=== PATIENT | female | born 1980 | race Caucasian/White ===

== ENCOUNTER 2022-11-02 07:46 | Outpatient (REF) | payer MEDICAID, SELFPAY ==
--- NOTE | ~2022-11-02 | US_ITS ---
EXAMINATION: US ABDOMEN COMPLETE CLINICAL INFORMATION: Fatty liver. Elevated AST. COMPARISON: None available. TECHNIQUE: Real-time imaging of the abdominal viscera. FINDINGS: PANCREAS: Normal. ABDOMINAL AORTA: The proximal, mid, and distal segments are normal in caliber. INFERIOR VENA CAVA: Visualized portions are normal. LIVER: The liver is normal in size. The liver contour is normal. There is diffuse increased liver parenchymal echogenicity, consistent with infiltrative hepatocellular disease. A 1 cm indeterminate hypoechoic liver lesion in the left hepatic lobe. There is no intrahepatic biliary duct dilatation seen. GALLBLADDER: Normal. The gallbladder is physiologically distended without evidence of stones, sludge, polyps, wall thickening or pericholecystic fluid. COMMON BILE DUCT: Normal in caliber measuring 0.3 cm in diameter. RIGHT KIDNEY: Normal. No hydronephrosis. No renal calculi or focal parenchymal lesions. The kidney measures 11.0 cm in maximum dimension. LEFT KIDNEY: Normal. No hydronephrosis. No renal calculi or focal parenchymal lesions. The kidney measures 10.8 cm in maximum dimension. SPLEEN: Normal. The spleen measures 10.2 cm in maximum dimension. FREE FLUID: None. US/US abdomen complete IMPRESSION: 1. A 1 cm indeterminate hypoechoic liver lesion in the left hepatic lobe. Recommend further characterization with contrast-enhanced MR abdomen. 2. There is diffuse increased liver parenchymal echogenicity which can be seen in the setting of hepatic steatosis or underlying liver disease.
== END 2022-11-02 07:47 | disposition home or self-care (01) ==
LOC: HO.US 07:46
PROVIDERS: PCP Internal Medicine; Visit Provider Internal Medicine
DX: K76.0 Fatty (change of) liver, not elsewhere classified (principal)
CPT/HCPCS: 76700

== ENCOUNTER 2022-11-23 10:19 | Outpatient (REF) | payer MEDICAID, SELFPAY ==
--- NOTE | 2022-11-23 | PFT_ITS ---
INDICATION: Dyspnea. SPIROMETRY: FEV1 to FVC of 72% with an FEV1 of 2.49 L, which is 85% predicted and FVC of 3.41 L, which is 97% predicted. No significant response to bronchodilators noted. Maximum voluntary ventilation 50% predicted. LUNG VOLUMES: Total lung capacity 102% predicted with a residual volume of 126% predicted and an expiratory reserve volume of 38% predicted. DIFFUSION CAPACITY: DLCO is elevated at 135% predicted. FLOW VOLUME LOOP: This is a normal loop. The patient does have some plateauing of the inspiratory flows and also potentially some plateauing of the expiratory flows suggesting a potential upper airway obstruction. COMPARISON: None. INTERPRETATION: No definitive obstructive nor restrictive ventilatory defects identified although again an upper airway obstructive process cannot be ruled out based on the flow volume loop. No significant response to bronchodilators noted. Lung volumes appeared to be normal except for an elevated residual volume suggesting some degree of air trapping which might be due to underlying small airway disease. The patient also has a significantly elevated diffusion capacity. Not clear if there is any exposure to exogenous carbon monoxide. We would recommend additional imaging studies and a pulmonary consultation to follow up this abnormal PFTs. Clinical correlation warranted. Javy Kaufman MD MR/MODL / [id number]
== END 2022-11-23 10:20 | disposition home or self-care (01) ==
LOC: HO.RESP 10:19
PROVIDERS: PCP Internal Medicine; Visit Provider Internal Medicine
DX: R06.02 Shortness of breath (principal)
CPT/HCPCS: 94010; 94727; 94729

== ENCOUNTER → 2022-11-23 10:30 | Outpatient (BNV) | payer MEDICAID, SELFPAY | PROVIDERS: PCP Internal Medicine; Visit Provider Hospitalist | DX: R06.02 Shortness of breath (principal) | CPT/HCPCS: 94060; 94727; 94729 ==

== ENCOUNTER 2022-12-15 16:31 | Outpatient (REF) | payer MEDICAID, SELFPAY ==
--- NOTE | ~2022-12-15 | MR_ITS ---
EXAMINATION: MR ABDOMEN WITHOUT AND WITH CONTRAST CLINICAL INFORMATION: Liver lesion COMPARISON: Abdominal ultrasound 11/02/2022 TECHNIQUE: MRI of the abdomen before and after the IV administration of 6.5 mL of Gadavist was obtained using routine sequences. FINDINGS: LUNG BASES: Unremarkable. ABDOMINAL AND PELVIC WALL: Unremarkable. LIVER AND BILIARY TREE: Loss of signal on opposed phase imaging compatible with hepatic steatosis. No suspicious liver lesion or worrisome correlate to the suspected sonographic finding. GALLBLADDER: Unremarkable. PANCREAS: Unremarkable. SPLEEN: Incidentally noted accessory splenule. ADRENAL GLANDS: Unremarkable. KIDNEYS AND URETERS: Unremarkable. GASTROINTESTINAL TRACT: Unremarkable. VASCULAR: Unremarkable. LYMPH NODES/PERITONEUM: No lymphadenopathy. FREE FLUID: Trace simple pelvic free fluid within physiologic limits of volume. OSSEOUS STRUCTURES: Unremarkable. PARTIALLY IMAGED PELVIS: Question of a partially septate versus arcuate morphology of the uterus, suboptimally evaluated on this MR abdomen. MR/MR abdomen wo/w con IMPRESSION: 1. No suspicious liver lesion or worrisome correlate to the suspected sonographic finding. 2. Hepatic steatosis. 3. Question of a partially septate versus arcuate morphology of the uterus, suboptimally evaluated on this MR abdomen. This could be further evaluated with dedicated pelvic ultrasound.
== END 2022-12-15 16:32 | disposition home or self-care (01) ==
LOC: HO.MRI 16:31
PROVIDERS: PCP Internal Medicine; Visit Provider Internal Medicine
DX: K76.89 Other specified diseases of liver (principal)
CPT/HCPCS: 74183; A9585

== ENCOUNTER 2023-02-10 13:23 | Outpatient (REF) | payer MEDICAID, SELFPAY ==
--- NOTE | ~2023-02-10 | XR_ITS ---
EXAMINATION: XR CHEST CLINICAL INFORMATION: Dyspnea COMPARISON: None available. TECHNIQUE: 2 views of the chest were obtained. FINDINGS: No significant abnormality is noted involving the heart, lungs, mediastinum, bony thorax or soft tissues. XR/XR chest 2V IMPRESSION: Unremarkable examination.
[2023-02-10 14:29] LABS: MANUAL DIFF FLAG NO
[2023-02-10 15:09] LABS: Basophils Percent Auto 0.4 % (0-2); Eosinophils Absolute Auto 0.4 X10*3/uL (0.0-0.4); Eosinophils Percent Auto 4.4 % (0-4); Hematocrit 39.7 % (37.0-47.0); Imm Gran Abs Auto 0.02 X10*3/uL (0.00-0.03); Imm Gran Pct Auto 0.2 % (0.0-0.4); Lymphocytes Absolute Auto 2.5 X10*3/uL (1.2-4.9); Lymphocytes Percent Auto 29.4 % (20-40); Mean Corpuscular HGB Conc 32.7 g/dl (31.0-35.0); Mean Corpuscular Hemoglobin 29.9 pg (27.0-33.0); Mean Corpuscular Volume 91.3 fL (80.0-98.0); Mean Platelet Volume 9.4 fL (9.4-12.3); Monocytes Absolute Auto 0.5 X10*3/uL (0.1-1.2); Monocytes Percent Auto 6.4 % (2-11); Neutrophils Percent Auto 59.2 % (45-73); Platelet Count 330 X10*3/uL (160-400); Red Blood Count 4.35 X10*6/uL (4.20-5.50); Red Cell Distribution Width 12.8 % (11.0-16.0); White Blood Count 8.5 X10*3/uL (4.8-10.8)
[2023-02-10 15:53] LABS: Erythrocyte Sedimentation Rate 11 MM/HR (0-20)
[2023-02-14 20:54] LABS: Immunoglobulin E 51 kU/L (<OR=114)
== END 2023-02-10 13:24 | disposition home or self-care (01) ==
LOC: HO.LAB 13:23
PROVIDERS: PCP Internal Medicine; Visit Provider Hospitalist
DX: R06.00 Dyspnea, unspecified (principal); J30.9 Allergic rhinitis, unspecified; R21 Rash and other nonspecific skin eruption
CPT/HCPCS: 36415; 71046; 82785; 85025; 85652; 86003; 99212

== ENCOUNTER 2023-02-10 13:23 | Outpatient (AMB) | payer MEDICAID, SELFPAY ==
--- NOTE | 2023-02-10 13:28 | A.OFFVIS_ITS ---
Intake Vital Signs 02/10/23 13:32 Height 5 ft Weight 142 lb 3.17 oz BMI 27.8 BP 100/60 Blood Pressure Location Lt brachial Position Sitting Pulse 61 Pulse Source Pulse Oximeter Pulse Oximetry (%) 100 Oxygen Delivery Method Room Air Intake Visit Reasons: abnormal pft Wholesaler Required: No Allergies No Known Allergies Allergy (Verified 02/10/23 13:35) HPI HPI Comments History of Present Illness Details The patient is here for pulmonary evaluation. The patient is a 42 year woman who apparently was in her usual state health the last few months which she started noticing worsening shortness of breath. She is had episodes where she is exposed to either a fumes or an irritant or an allergen and 11 send she has a hard time breathing. She has 1 such episode while at outside family event where she was exposed to smoke and lowest setting could not breathe. Due to her ongoing symptoms the patient was referred for additional studies such as a pulmonary function study. The patient did undergo it and it was abnormal for the fact that her flow volume loop appeared to have plateauing of the inspiratory expiratory flows. This would suggest an upper airway obstruction. Therefore the patient was referred over. She states that she still has episodes of shortness of breath depending on the triggers. She does not use any inhalers. Denies any productive cough. She also gets hives at times and also rashes. The patient also has issues with underlying allergies with teary eyes and itchy nose. Denies any significant eczema. On my examination I did not appreciate any stridor. Her speech is good and does not appear to have any evidence of any upper airway obstruction at this time. She does state that before the pulmonary function study she had just had COVID and she did feel some fullness in that area. Indeed could have been swelling postviral and now has resolved. Still she likely has a component of reactive airways disease and likely some degree of allergic bronchospastic disease. Therefore, provide her with a peak flow and a rescue inhaler. The patient will also undergo allergy testing at this time will follow-up in 2-3 months or sooner if the patient develops any worsening symptoms. [facility] Medical History (Updated 02/10/23 @ 21:20 by Javy Kaufman MD) Dyspnea Chronic allergic rhinitis Rash Social History (Updated 02/10/23 @ 13:35 by MADELINE Rothman) Patient Tobacco Use Status: Never used Tobacco Review of Systems Const Denies fever(s) Eyes Reports itchy eyes ENT Denies hoarseness, Denies lip swelling, Reports nasal congestion and Reports nasal discharge Card Denies chest pain and Reports dyspnea Resp Reports cough and Reports dyspnea GI Reports no additional complaints Musc Reports no additional complaints Skin/Breast Reports rash Endo Denies flushing Víctor/Lymph Denies easy bruising and Denies lymphadenopathy Aller/Immun Reports itchy eyes and Denies lip swelling Physical Exam Vital Signs: Last Vital Signs Pulse 61 02/10/23 13:32 BP 100/60 02/10/23 13:32 Pulse Ox 100 02/10/23 13:32 Oxygen Delivery Method Room Air 02/10/23 13:32 BMI result Body Mass Index 27.8 Const General: comfortable HEENT Head: Yes normocephalic Eyes General: appearance normal, both eyes and all related structures Neck Neck: Yes supple Chest Chest palpation & inspection: normal inspection of the chest Resp Effort & Inspection: normal respiratory effort and no stridor Auscultation: clear to auscultation bilaterally Cardio Rate: regular rate Rhythm: regular rhythm Heart sounds: S1 normal heart sound present and S2 normal heart sound present GI Palpation (GI): Soft to palpation Skin General skin exam: no rashes or lesions noted Extrem General: Yes no clubbing, cyanosis or edema Assessment & Plan Assessment & Plan (1) Dyspnea: Comment: Likely reactive airway disease Code(s): R06.00 - Dyspnea, unspecified Qualifiers: Dyspnea type: shortness of breath Qualified Code(s): R06.02 - Shortness of breath (2) Chronic allergic rhinitis: Code(s): J30.9 - Allergic rhinitis, unspecified (3) Rash: Code(s): R21 - Rash and other nonspecific skin eruption Plan CARLOS as needed Peak flow Bloodwork/ Allergy testing CXR F/U 2-3 months Orders: Orders Rast Allergen Today J30.9 - Allergic rhinitis, unspecified, R06.00 - Dyspnea, unspecified, R21 - Rash and other nonspecific skin eruption Complete Blood Count Auto Diff Today J30.9 - Allergic rhinitis, unspecified, R06.00 - Dyspnea, unspecified, R21 - Rash and other nonspecific skin eruption Erythrocyte Sedimentation Rate Today J30.9 - Allergic rhinitis, unspecified, R06.00 - Dyspnea, unspecified, R21 - Rash and other nonspecific skin eruption Immunoglobulin E Today J30.9 - Allergic rhinitis, unspecified, R06.00 - Dyspnea, unspecified, R21 - Rash and other nonspecific skin eruption XR chest 2V Today R06.00 - Dyspnea, unspecified Medications: New albuterol sulfate 90 mcg/actuation 2 inhalations inhalation Q6H 30 days PRN 18 grams 12RF shortness of breath or wheezing J44.9 - Chronic obstructive pulmonary disease, unspecified Coding Level of Care Code New Pt Level 4 (45725) Diagnoses Shortness of breath R06.02 Dyspnea type: shortness of breath Chronic allergic rhinitis J30.9 Rash R21 Time Spent (min) 37
[2023-02-10 13:32] VITALS: BP 100/60; PULSE 61; O2SAT 100; BMI 27.8
== END 2023-02-10 14:10 | disposition home or self-care (01) ==
PROVIDERS: PCP Internal Medicine; Visit Provider Hospitalist
DX: R06.02 Shortness of breath (principal); J30.9 Allergic rhinitis, unspecified; R21 Rash and other nonspecific skin eruption
CPT/HCPCS: 99214

== ENCOUNTER 2023-03-10 11:40 | Outpatient (REF) | payer OTHER, SELFPAY ==
[2023-03-10 13:26] LABS: Rheumatoid Factor < 13.0 IU/mL (<15.0)
[2023-03-11 15:04] LABS: Cyclic Citrullinated Peptide <16 UNITS
[2023-03-15 15:14] LABS: ANA Pattern 2 Nuclear, Homogeneous; Anti Nuclear Antibody Pattern Nuclear, Speckled; Anti Nuclear Antibody Screen POSITIVE (NEGATIVE)
== END 2023-03-10 11:41 | disposition home or self-care (01) ==
LOC: HO.HHCL 11:40
PROVIDERS: Visit Provider Internal Medicine
DX: R53.83 Other fatigue (principal); R52 Pain, unspecified
CPT/HCPCS: 36415; 86038; 86039; 86200; 86431

== ENCOUNTER 2023-05-13 13:48 | Outpatient (AMB) | payer SELFPAY ==
[2023-05-13 14:08] VITALS: PULSE 65; O2SAT 98; BMI 27.5
--- NOTE | 2023-05-13 14:08 | A.OFFVIS_ITS ---
Intake Vital Signs 05/13/23 14:08 Height 5 ft Weight 141 lb BMI 27.5 Pulse 65 Pulse Source Pulse Oximeter Pulse Oximetry (%) 98 Oxygen Delivery Method Room Air Intake Visit Reasons: Abnormal PFT Direct Sales Consultant Required: No Allergies No Known Allergies Allergy (Verified 05/13/23 14:09) HPI HPI Comments History of Present Illness Details The patient is a 43 year woman who apparently was in her usual state health the last few months which she started noticing worsening shortness of breath. She is had episodes where she is exposed to either a fumes or an irritant or an allergen and 11 send she has a hard time breathing. She has 1 such episode while at outside family event where she was exposed to smoke and lowest setting could not breathe. Due to her ongoing symptoms the patient was referred for additional studies such as a pulmonary function study. The patient did undergo it and it was abnormal for the fact that her flow volume loop appeared to have plateauing of the inspiratory expiratory flows. This would suggest an upper airway obstruction. Therefore the patient was referred over. She states that she still has episodes of shortness of breath depending on the triggers. She does not use any inhalers. Denies any productive cough. She also gets hives at times and also rashes. The patient also has issues with underlying allergies with teary eyes and itchy nose. Denies any significant eczema. On my examination I did not appreciate any stridor. Her speech is good and does not appear to have any evidence of any upper airway obstruction at this time. She does state that before the pulmonary function study she had just had COVID and she did feel some fullness in that area. Indeed could have been swelling postviral and now has resolved. Still she likely has a component of reactive airways disease and likely some degree of allergic bronchospastic disease. Therefore, provide her with a peak flow and a rescue inhaler. The patient will also undergo allergy testing at this time will follow-up in 2-3 months or sooner if the patient develops any worsening symptoms. 05/13/2023 the patient is here for a pul monary follow-up visit. Overall she is doing about the same. Still having episodes of shortness of breath and chest tightness. Moderate severity. Typically early in the morning. Then after using her inhalers symptoms improved. She did start recently allergy medication [id number] because of itchy eyes and postnasal drip. Since we partially helping. We did review her allergy studies. She has severe allergies to dust mites. That is the major allergen. Unfortunately she does have carpet in her bedroom and also has regular budding. Explained to her the that environment is likely resulting in her allergy symptoms. She is going to be moving to a different apartment soon and therefore she understands interstitial look for something without any carpals rods. She also use hypoallergenic covers for the bedding. In the meantime will start her on Singulair. She will continue with rescue inhaler. At this point the patient does not need any inhaled steroids although if she does continue to be symptomatic then will go ahead and start her on Flovent. The patient can continue her [id number] allergy medication as well. The patient also was having significant joint discomfort. She has mainly small joint involvement. Moderate severity. A little stiffness. Her JAIMEE studies were indeed elevated. She may have a component of connective tissue disease that needs to be further addressed. Will make a referral to Rheumatology at this time. [facility] Medical History (Updated 05/13/23 @ 14:29 by Javy Kaufman MD) Dyspnea Chronic allergic rhinitis Rash Social History (Updated 02/10/23 @ 13:35 by Janis Contreras Benedict) Patient Tobacco Use Status: Never used Tobacco Review of Systems Const Denies fever(s) Eyes Reports itchy eyes ENT Denies hoarseness, Denies lip swelling, Reports nasal congestion and Reports nasal discharge Card Denies chest pain and Reports dyspnea Resp Reports cough and Reports dyspnea GI Reports no additional complaints Musc Reports no additional complaints Skin/Breast Reports rash Endo Denies flushing Víctor/Lymph Denies easy bruising and Denies lymphadenopathy Aller/Immun Reports itchy eyes and Denies lip swelling Physical Exam Vital Signs: Last Vital Signs Pulse 65 05/13/23 14:08 Pulse Ox 98 05/13/23 14:08 Oxygen Delivery Method Room Air 05/13/23 14:08 BMI result Body Mass Index 27.5 Const General: comfortable HEENT Head: Yes normocephalic Eyes General: appearance normal, both eyes and all related structures Neck Neck: Yes supple Chest Chest palpation & inspection: normal inspection of the chest Resp Effort & Inspection: normal respiratory effort and no stridor Auscultation: clear to auscultation bilaterally Cardio Rate: regular rate Rhythm: regular rhythm Heart sounds: S1 normal heart sound present and S2 normal heart sound present GI Palpation (GI): Soft to palpation Skin General skin exam: no rashes or lesions noted Extrem General: Yes no clubbing, cyanosis or edema Assessment & Plan Assessment & Plan (1) Dyspnea: Comment: Likely reactive airway disease Code(s): R06.00 - Dyspnea, unspecified Qualifiers: Dyspnea type: shortness of breath Qualified Code(s): R06.02 - Shortness of breath (2) Chronic allergic rhinitis: Code(s): J30.9 - Allergic rhinitis, unspecified (3) Rash: Code(s): R21 - Rash and other nonspecific skin eruption (4) Arthritis: Code(s): M19.90 - Unspecified osteoarthritis, unspecified site (5) JAIMEE positive: Code(s): R76.8 - Other specified abnormal immunological findings in serum Plan CARLOS as needed consider ICS inhaler if worsens start Singulair Avoidance rugs/carpet/bedding contiune anti histamines as needed Rheumatology referral F/U 12 months Orders: Referrals Rheumatology Referral M19.90 - Unspecified osteoarthritis, unspecified site, R76.8 - Other specified abnormal immunological findings in serum Medications: New montelukast (Singulair) 10 mg PO BEDTIME 30 days 30 tabs 11RF J45.909 - Unspecified asthma, uncomplicated Coding Level of Care Code Est Pt Level 4 (91482) Diagnoses Shortness of breath R06.02 Dyspnea type: shortness of breath Chronic allergic rhinitis J30.9 Rash R21 Arthritis M19.90 JAIMEE positive R76.8 Time Spent (min) 17
== END 2023-05-13 14:32 | disposition home or self-care (01) ==
PROVIDERS: PCP Internal Medicine; Referring Provider Internal Medicine; Visit Provider Hospitalist
DX: R06.02 Shortness of breath (principal); J30.9 Allergic rhinitis, unspecified; R21 Rash and other nonspecific skin eruption; M19.90 Unspecified osteoarthritis, unspecified site; R76.8 Other specified abnormal immunological findings in serum
CPT/HCPCS: 99214

== ENCOUNTER → 2023-05-13 13:48 | Outpatient (BNVA) | payer OTHER, SELFPAY | PROVIDERS: PCP Internal Medicine; Visit Provider Hospitalist | DX: R06.02 Shortness of breath (principal); J30.9 Allergic rhinitis, unspecified; R21 Rash and other nonspecific skin eruption; M19.90 Unspecified osteoarthritis, unspecified site; R76.8 Other specified abnormal immunological findings in serum | CPT/HCPCS: 99212 ==

== ENCOUNTER 2023-11-08 15:12 | Outpatient (REF) | payer MEDICAID, OTHER, SELFPAY ==
--- NOTE | ~2023-11-08 | XR_ITS ---
EXAMINATION: XR LUMBOSACRAL SPINE WITH OBLIQUES CLINICAL INFORMATION: Chronic bilateral low back pain with sciatica. Patient states no accident or injury, pain for one year when sitting too long. COMPARISON: None available. TECHNIQUE: 6 views of the lumbar spine. FINDINGS: Mild dextroscoliosis of the lumbar spine. Degenerative changes in the bilateral sacroiliac joints. Straightening of the normal lumbar lordosis. Facet arthritis in the lower lumbar spine. Multilevel lumbar spondylosis with mild loss of disc space height at L5-S1. XR/XR lumbar spine 4V min IMPRESSION: Multilevel lumbar spondylosis with mild loss of disc space height at L5-S1.
[2023-11-08 16:18] LABS: MANUAL DIFF FLAG NO
[2023-11-08 16:19] LABS: Basophils Percent Auto 0.5 % (0-2); Eosinophils Absolute Auto 0.3 X10*3/uL (0.0-0.4); Eosinophils Percent Auto 3.7 % (0-4); Hematocrit 40.1 % (37.0-47.0); Hemoglobin 13.6 g/dl (12.0-16.0); Imm Gran Abs Auto 0.02 X10*3/uL (0.00-0.03); Imm Gran Pct Auto 0.2 % (0.0-0.4); Lymphocytes Absolute Auto 2.3 X10*3/uL (1.2-4.9); Lymphocytes Percent Auto 27.9 % (20-40); Mean Corpuscular HGB Conc 33.9 g/dl (31.0-35.0); Mean Corpuscular Hemoglobin 30.4 pg (27.0-33.0); Mean Corpuscular Volume 89.5 fL (80.0-98.0); Mean Platelet Volume 9.3 fL (9.4-12.3); Monocytes Absolute Auto 0.5 X10*3/uL (0.1-1.2); Monocytes Percent Auto 6.1 % (2-11); Neutrophils Percent Auto 61.6 % (45-73); Platelet Count 330 X10*3/uL (160-400); Red Blood Count 4.48 X10*6/uL (4.20-5.50); Red Cell Distribution Width 13.2 % (11.0-16.0); White Blood Count 8.1 X10*3/uL (4.8-10.8)
[2023-11-08 16:47] LABS: Estimated Average Glucose 111 mg/dL; Hemoglobin A1c % 5.5 % (<6.0)
[2023-11-08 16:48] LABS: Alanine Aminotransferase 35 U/L (0-31); Albumin Level 4.3 g/dL (3.5-5.0); Alkaline Phosphatase 70 U/L (39-117); Anion Gap 12 (12-20); Aspartate Amino Transferase 20 U/L (5-31); Bilirubin Total 0.3 mg/dL (0.0-1.0); Blood Urea Nitrogen 10 mg/dL (9-16); Calcium 9.2 mg/dL (8.4-10.2); Carbon Dioxide 27 mmol/L (22-29); Chloride 104 mmol/L (96-108); Cholesterol 172 mg/dL (<200); Estimated Glomerular Filt Rate > 60; Glucose Random 101 mg/dL (60-115); HDL Cholesterol 46 mg/dL (>40); LDL Cholesterol Calculated 100 mg/dL (<100); Potassium 3.6 mmol/L (3.3-5.1); Sodium 139 mmol/L (135-145); Total Protein 7.7 g/dL (6.5-8.0); Triglycerides 133 mg/dL (<150)
[2023-11-08 17:20] LABS: Reflex LDLD? No
[2023-11-09 08:13] LABS: HIV AB/AG Nonreactive (Nonreactive); HIV Num 1 0.06 S/CO (0.00-0.99)
[2023-11-09 15:28] LABS: HCV Log PCR <1.18 NOT DETECTED Log IU/mL (NOT DETECTED); HepC Viral Load <15 NOT DETECTED IU/mL (NOT DETECTED)
== END 2023-11-08 15:13 | disposition home or self-care (01) ==
LOC: HO.HHCL 15:12
PROVIDERS: Visit Provider Internal Medicine
DX: Z00.00 Encounter for general adult medical examination without abnormal findings (principal); M54.42 Lumbago with sciatica, left side; M54.41 Lumbago with sciatica, right side; G89.29 Other chronic pain
CPT/HCPCS: 36415; 72110; 80053; 80061; 83036; 85025; 87389; 87522

== ENCOUNTER 2023-12-27 13:16 | Outpatient (REF) | payer MEDICAID, OTHER, SELFPAY ==
[2023-12-29 14:48] LABS: HPV mRNA E6/E7 Not Detected (Not Detected)
== END 2023-12-27 13:17 | disposition home or self-care (01) ==
LOC: HO.HHCLNP 13:16
PROVIDERS: Visit Provider Internal Medicine
DX: Z12.4 Encounter for screening for malignant neoplasm of cervix (principal)
CPT/HCPCS: 36415; 87624; 88175

== ENCOUNTER 2025-03-30 10:16 | Outpatient (REF) | payer MEDICAID, OTHER, SELFPAY ==
--- NOTE | ~2025-03-30 | MM_ITS ---
EXAMINATION: MM SCREENING DIGITAL BREAST TOMOSYNTHESIS, BILATERAL CLINICAL INFORMATION: Screening. Asymptomatic. COMPARISON: None. This is a baseline study. TECHNIQUE: Digital breast tomosynthesis is performed in mediolateral oblique and craniocaudal views along with computer-aided detection (CAD). Synthesized 2D images are generated from the tomosynthesis. FINDINGS: BREAST COMPOSITION: The breasts are heterogeneously dense, which may obscure small masses. BILATERAL BREASTS: No significant masses, suspicious calcifications or other abnormalities are seen in either breast. MM/MM tomosynthesis screening BI IMPRESSION: BILATERAL BREASTS: Negative, no mammographic evidence of malignancy. Normal interval follow-up is recommended in 12 months. ASSESSMENT: BI-RADS: Category 1: Negative RECOMMENDATION: Routine annual mammography screening. FOLLOW-UP: 1 year F/U This examination should not preclude the clinical evaluation of a suspicious palpable abnormality. This patient's information was entered into a reminder system with a target due date for their next mammogram. Electronically signed by: Hector Kam MD 04/01/2025 07:08 PM JANE
--- OUTSIDE RECORDS SUMMARY | 2025-03-30 10:25 | XMS_ITS | Encounter Summary ---
Author Organization [employer] Address [address] [place] [address] [place] [address] Care Team Providers Care Behavioral Therapy Coordinator Name Role Phone Agata Clark MD Primary Care Provide r Encounter Details Date Type Department Care Team (Latest Contact Info) Description 12/25/2018 Abstract [facility] CONVERSIONS Dental, Provider, DDS Social History Tobacco Use Types Packs/Day Years Used Date Smoking Tobacco: Never Assessed Comments Unknown Sex and Gender Information Value Date Recorded Sex Assigned at Female 03/15/2022 10:33 AM EDT Legal Sex Female 10:33 AM EDT Gender Identity Female 03/15/2022 10:33 AM EDT Sexual Orientation Choose not to disclose 2021 10:33 AM EDT documented as of this encounter Plan of Treatment Upcoming Encounters Date Type Department Care Team (Late st Contact Info) Description 04/03/2025 10:00 AM EST Office Visit [facility] ADULT [facility]ENT[facility] [address] [place] [address] Forest Fitch DDS [address] [place] [address] 08/05/2025 9:30 AM EDT Office Visit [facility] [address] [place] [address] Jeannette Weaver [address] [place] [address] documented as of this encounter Visit Diagnoses Not on filedocumented in this encounter Care Teams Behavioral Therapy Coordinator Relationship Specialty Start Date End Date Agata Clark MD [address] [place] [address] PCP - General Family Medicine 09/15/18 documented as of this encounter
--- OUTSIDE RECORDS SUMMARY | 2025-03-30 10:25 | XMS_ITS | Encounter Summary ---
Author Organization [employer] [facility] Address [address] [place] [address] Care Team Providers Care Breastfeeding Educator Name Role Phone Agata Clark MD Primary Care Provide r Encounter Details Date Type Department Care Team (Latest Contact Info) Description 08/27/2020 Abstract [facility] CONVERSIONS Dental, Provider, DDS Social History Tobacco [...] Description 04/03/2025 10:00 AM EST Office Visit [facility] ADULT DENTAL [address] [place] [address] Forest Fitch DDS [address] [place] [address] 08/05/2025 9:30 AM EDT Office Visit [facility] ADULT DENTAL [address] [place] [address] Jeannette Weaver [address] [place] [address] documented as of this encounter Visit Diagnoses Not on filedocumented in this encounter Care Teams Breastfeeding Educator Relationship Specialty Start Date End Date Agata Clark MD [address] [place] [address] PCP - General Family Medicine 09/15/18 documented as of this encounter
--- OUTSIDE RECORDS SUMMARY | 2025-03-30 10:25 | XMS_ITS | Encounter Summary ---
Author Organization [facility] Address [address] [place] [id number] Care Team Providers Care Director Of Channel Marketing Name Role Phone Agata Clark MD Primary Care Provide r Encounter Details Date Type Department Care Team (Latest Contact Info) Description 01/15/2022 Abstract [facility] CONVERSIONS Dental, Provider, DDS Social History [...] Description 04/03/2025 10:00 AM EST Office Visit [facility] ADULT DENTAL [address] [place] [address] Forest Fitch DDS [address] [place] [address] 08/05/2025 9:30 AM EDT Office Visit [facility] ADULT DENTAL [address] [place] [address] Jeannette Weaver [address] [place] [address] documented as of this encounter Visit Diagnoses Not on filedocumented in this encounter Care Teams Director Of Channel Marketing Relationship Specialty Start Date End Date Agata Clark MD [address] [place] [address] PCP - General Family Medicine 09/15/18 documented as of this encounter
--- OUTSIDE RECORDS SUMMARY | 2025-03-30 10:26 | XMS_ITS | Clinical Summary ---
Author Organization [facility] Address [address] [facility] [address] [place] [id number] Phone Care Team Providers Care Welfare Case Worker Name Role Phone Agata Street MD Primary Care Provider Allergies No known active allergies Medications No known medications Active Problems Problem Noted Date Diagnosed Date Molluscum contagiosum 01/11/2020 Overview (01/11/2020): Suspected moluscum of the mons Assessment & Plan (01/11/2020 1:16 PM EDT): Reviewed months for improvement, advised avoid shaving, rubbing, or scratching as this can spread the infection Return in 3-4 months for exam if not resolved; can consider removal/destruction Resolved Problems Problem Noted Date Diagnosed Date Resolved Date Normal intrauterine , antepartum 11/30/2019 01/04/2020 Breech presentation 11/30/2019 01/04/20 20 Mother positive for group B Streptococcus colonization 11/12/2019 01/04/2020 Urinary tract infection in m other during first trimester of 05/16/2019 01/04/2020 Overview (07/05/2019): Treated 05/17/18. Plan GABY at next visit Had urine culture in ED 06/11. Results contaminated. Not having any further s/s Assessment & Plan (06/12/2019 9:58 AM EST): Had urine culture in ED yesterday. Results pending. Advanced maternal age in multigravida 04/11/2019 01/04/2020 Overview (11/12/2019): CNM Dating criteria - LMP confirmed with 1st tri u/s Rh O+ GC/Chlam Neg/Neg Tdap 10/24/19 Flu * Hgb 12.1 GTT 1 hr elevated - 3 hr normal GBS pos PPBC * screening - neg cfDNA o Risks of aneuploidy discussed w patient. o Offered - Offer cell free DNA - Level 2 - Offer [facility] and amnio o Pt. chooses cfDNA and L2 - cfDNA normal - order placed for L2 and message sent to [facility] to schedule Assessment & Plan (11/28/2019 9:14 AM EDT): Agata is doing well, no concerns. Having some swelling in her hands and feet at the end of the day. She would like to keep her placenta. Discussed FM, PEC, and labor precautions. +FM. Denies LOF, VB, UCs. Discussed postdates plan: she will have BPP and in-person visit this time next week. Assessment & Plan (11/09/2019 3:47 PM EDT): Feels well, continues to have some pedal edema, discussed remedies. Reviewed s/s of labor and contacting practice, reviewed CBC policies currently in effect. GBS collected today Assessment & Plan (10/24/2019 11:04 AM EDT): Agata is doing well. Baby is active. Her feet are a little bit swollen but she has no other symptoms. Denies headache, visual changes, epigastric pain. Given BP cuff today. Reviewed how to take BP, when to take and parameters. Reviewed GBS at next visit. Accepts Tdap today. She is planning to go to [place] tomorrow for a memorial service for her uncle who . Reviewed social distancing recommendations. She will be coming back on the same day and will plan to quarantine for 2 weeks after her return. Assessment & Plan (10/03/2019 4:16 PM EDT): Agata is feeling well. Baby is moving a lot. Having some pins and needles in her legs sometimes when she gets up to void at night. It resolves spontaneously. Not itchy at any other time. Discussed home cuff. Feels that it would be difficult for her to get one. Please provide at next visit. She will have a visit at 34 weeks to enroll in virtual visit. Reviewed signs and symptoms of preeclampsia, movement counts, COVID policies. Please offer TDAP at next visit. Assessment & Plan (08/23/2019 5:04 PM EDT): Agata is here doing well. Denies VB/LOF/Ctxs. + FM. Will do GTT/CBC today. We discussed COVID-19 precautions, office and hospital preparation and new visitor policy. At home with kids, able to isolate well. Reviewed recommendations for spacing visits -NV will be 32 wks, she agrees. Reviewed warning s/s and when to call Assessment & Plan (07/26/2019 2:03 PM EDT): Agata is here with the call center rn. Feeling well. No further vaginal itching after using Rx'd cream from 07/19. L2 anatomy scan today; report not available at time of visit, but anatomy is normal per pt. Pt also reports MD mentioned some scar tissue in her uterus that might necessitate a CS delivery, but unable to speculate about this piece of info w/o the report - will f/u once report is back. Warning signs reviewed. Assessment & Plan (07/05/2019 10:47 AM EST): Agata is doing well, here with her sons and interpretor. Beginning to feel a lot of movement. Denies VB/LOF/ctx. Had Level 2 scheduled for today, but forgot about the appointment. Will reschedule for next available. Discussed MSAFP, she plans to complete, lab slip given. Reviewed warning signs and indications to call. Assessment & Plan (06/12/2019 10:00 AM EST): Agata is here with Giuseppe and their son. She had a stomach bug yesterday with vomiting and diarrhea for which she was treated in the ED. She is feeling much better today. Has had some thick discharge and itching since completing antibiotics for her UTI. Will treat for yeast. Would like to continue care with midwives. Level 2 ordered and message sent to [facility] to schedule. Reviewed normal cfDNA results. Immunizations Immunization Administration Dates Next Due Tdap 10/24/2019 Social History Tobacco Use Types Packs/Day Years Used Date Smoking Tobacco: Never Smokeless Tobacco: Never Alcohol Use Standard Drinks/Week Comments Never 0 (1 standard drink = 0.6 oz pur e alcohol) Education Answer Date Recorded Are you interested in more education? Not on fatmata e 09/10/2022 Are you concerned about learning? Not on file 09/10/2022 No 09/10/2022 No 09/10/2022 Digital Access Answer Date Recorded No 10/08/2022 No 10/08/2022 No 10/08/2022 Reliable internet access at home? Not on file 10/08/2022 Device with a working camera? Not on file Comments No Sex and Gender Information Value Date Recorded Sex Assigned at Female 06/11/2019 9:37 AM EST Legal Sex Female 9:19 PM EDT Gender Identity Female 06/11/2019 9:37 AM EST Sexual Orientation Straight 06/11/2019 9: 37 AM EST Occupation Industry Job Start Date Job End Date working Not on file Not on file Not on file Last Filed Vital Signs Vital Sign Reading Time Taken Comments Blood Pressure 110/60 01/11/2020 12:24 PM EDT Pulse 55 01/02/2020 9:33 PM EDT Temperature 36.2 C (97.2 F) 01/02/2020 7:22 PM EDT Respiratory Rate 18 01/02/2020 9:33 PM EDT Oxygen Saturation 99% 01/02/2020 9:33 PM EDT Inhaled Oxygen Concentration - - Weight 65.3 kg (144 lb) 01/11/2020 12:24 PM EDT Height 149.9 cm (4' 11.02 ) 01/11/2020 12:24 PM EDT Body Mass Index 29.07 01/11/2020 12:24 PM EDT Plan of Treatment Health Maintenance Due Date Last Done Comments DEPRESSION SCREENING 1994 PAP SMEAR 2003 MAMMOGRAM 2022 INFLUENZA VACCINE (#1) 2024 COVID-19 VACCINE ( - 2024-2 6 season) 2025 Adult Td,Tdap Booster 10/23/2029 10/24/2019 HEPATITIS C SCREENING Completed 04/11/2019 , 04/11/2019, 04/11/2019 HIV ONE-TIME SCREENING (18-6 5 YEARS) Completed 04/11/2019 SMOKING STATUS SCREENING (On ce After 26 Yrs) Completed 01/04/2020 HEPATITIS A VACCINES Aged Out No long er eligible based on patient's age to complete this topic HIB VACCINES Aged Out No longer eligi ble based on patient's age to complete this topic IPV VACCINES Aged Out No longer eligi ble based on patient's age to complete this topic MENINGOCOCCAL VACCINES (ACWY) Aged Out No longer eligible based on patient's age to complete this topic MENINGOCOCCAL VACCINES (B) Aged Out N o longer eligible based on patient's age to complete this topic PNEUMOCOCCAL VACCINES (0-49 years) Aged Out No longer eligible b ased on patient's age to complete this topic Medical Devices Not on file Procedures Procedure Name Priority Date/Time Associated Diagnosis Comments HEPATITIS C ANTIBODY, QUALITATIVE Routine 04/11/2019 12:36 PM EST Multigravida of advanced maternal age in first trimester from Last 3 Months or Most Recently Relevant to Health Maintenance Results * Hepatitis C antibody, qualitative (04/11/2019 12:36 PM EST) HCV NON-REACTIV E NON-REACTI VE [facility] Blood 04/11/2019 12:3 6 PM EST 04/11/2019 12:41 PM EST Iain Montejo CNM LAB BLOOD BKR ORDERABL ES Final Result [address] [phone] from Last 3 Months or Most Recently Relevant to Health Maintenance Advance Directives For more information, please contact: [phone] (9AM - 5PM [facility], Tuesday-Tuesday) * Full Code (Presumed) (Latest Code Status on File) Date Activated Date Inactivated Comments 11/30/2019 6:09 AM * Full Code (Presumed) Date Activated Date Inactivated Comments 11/30/2019 4:09 AM 11/30/2019 6:09 AM Care Teams Welfare Case Worker Relationship Specialty Start Date End Date Barciona-Banegas, Agata Cecilia, MD [address] [place] [address] PCP - General Internal Medicine 05/14/19 Additional Source Comments The information contained in this document represents components of the legal health record. It is not the complete legal health record.[facility]
--- OUTSIDE RECORDS SUMMARY | 2025-03-30 10:26 | XMS_ITS | Encounter Summary ---
Author Organization [facility] Address [address] [place] [id number] Phone Care Team Providers Care Metal Grinder Name Role Phone Agata Street MD Primary Care Provider Encounter Details Date Type Department Care Team (Late st Contact Info) Description 11/30/2019 Procedure Pass [facility] L[facility]D Procedures [address] [place] [address] Social History Tobacco Use Types Packs/Day Years Used Date Smoking Tobacco: Never Smokeless Tobacco: Never Alcohol Use Standard Drinks/Week Comments Never 0 (1 standard drink = 0.6 oz pur e alcohol) Comments No Sex and Gender Information Value Date Recorded Sex Assigned at Female 06/11/2019 9:37 AM EST Legal Sex Female 9:19 PM EDT Gender Identity Female 06/11/2019 9:37 AM EST Sexual Orientation Straight 06/11/2019 9: 37 AM EST Occupation Industry Job Start Date Job End Date working Not on file Not on file Not on file documented as of this encounter Plan of Treatment Not on file documented as of this encounter Visit Diagnoses Not on filedocumented in this encounter Care Teams Metal Grinder Relationship Specialty Start Date End Date Agata Street MD [address] [place] [address] PCP - General Internal Medicine 05/14/19 documented as of this encounter Additional Source Comments The information contained in this document represents components of the legal health record. It is not the complete legal health record.[facility]
--- OUTSIDE RECORDS SUMMARY | 2025-03-30 10:27 | XMS_ITS | Encounter Summary ---
Author Organization [facility] Address [address] [place] [address] Care Team Providers Care Software Test Analyst Name Role Phone Agata Clark MD Primary Care Provider Reason for Visit * Reason Onset Date Comments PAC Appt Request - New 11/15/2023 Encounter Details Date Type Department Care Team (Late st Contact Info) Description 11/15/2023 Telephone [facility] [address] [place] [address] Telephone Intake, Staff PAC Appt Request - New Social History Tobacco Use Types Packs/Day Years Used Date Smoking Tobacco: Never Assessed Comments Unknown Sex and Gender Information Value Date Recorded Sex Assigned at Not on file Legal Sex Female 3:50 PM EDT Gender Identity Not on file Sexual Orientation Not on file documented as of this encounter Miscellaneous Notes * Telephone Encounter - Sarah Brady - 11/18/2023 8:14 AM EDT Good morning, Referral, Ofc Notes, and labs scanned into media 11/11/2023. Can you please review and provide an appt? Thank you, Sarah [facility] [phone] * Telephone Encounter - Suyapa Phelps - 11/15/2023 11:51 AM EDT New pt referred to [facility] for +JAIMEE Unable to schedule within DT timeframe Pt can be reached @ [phone] Thank you, PAC documented in this encounter Plan of Treatment Not on file documented as of this encounter Visit Diagnoses Not on filedocumented in this encounter Care Teams Software Test Analyst Relationship Specialty Start Date End Date Agata Clark MD [address] [place] [id number] PCP - General Internal Medicine 11/11/23 documented as of this encounter
--- OUTSIDE RECORDS SUMMARY | 2025-03-30 10:27 | XMS_ITS | Encounter Summary ---
Author Organization [facility] Address [address] [place] [address] Care Team Providers Care Exercise Physiologist Certified Name Role Phone Agata Clark MD Primary Care Provider Encounter Details Date Type Department Care Team (Latest Contact Info) Description 11/11/2023 Transcribe Orders [facility]erral [facility] [address] [place] [address] Agata Clark MD [address] [place], [place] [id number] Positive JAIMEE (antinuclear antibody) (Primary Dx) Social History Tobacco Use Types Packs/Day Years Used Date Smoking Tobacco: Never Assessed Comments Unknown Sex and Gender Information Value Date Recorded Sex Assigned at Not on file Legal Sex Female 3:50 PM EDT Gender Identity Not on file Sexual Orientation Not on file documented as of this encounter Plan of Treatment Not on file documented as of this encounter Visit Diagnoses Diagnosis Positive JAIMEE (antinuclear antibody)- Primary Other and unspecified nonspecific immunological findings documented in this encounter Care Teams Exercise Physiologist Certified Relationship Specialty Start Date End Date Agata Clark MD [address] [place] [address] PCP - General Internal Medicine 11/11/23 documented as of this encounter
--- OUTSIDE RECORDS SUMMARY | 2025-03-30 10:28 | XMS_ITS | Clinical Summary ---
Author Organization [facility] Address [address] [place] [address] 7 [place] [address] Care Team Providers Care Hazardous Substances Scientist Name Role Phone Agata Clark MD Primary Care Provide r Allergies No known active allergies Medications cetirizine (ZyrTEC) 10 MG tabletIndications: Allergic conjunctivitis of both eyes Take 1 tablet (10 mg) by mouth in the morning. 90 tablet 11/08/19 Active Additional Information Patient not taking.Reported on 03/14/2025 Ketotifen Fumarate 0.035 % solutionIndication s:Allergic conjunctivitis of both eyes Administer 1 drop into both eyes 2 times daily. 10 mL 2 12/27/19 Active Additional Information Patient not taking.Reported on 03/14/2025 Active Problems Problem Noted Date Diagnosed Date Pap smear for cervical cancer screening 12/27/19 Assessment & Plan (12/27/2023 11:10 AM EDT): Pelvic exam and PAP smear done, patient will be contacted with results Polyarthralgia 11/08/2023 Encounter for screening mamm ogram for malignant neoplasm of breast 11/08/2023 Chronic bilateral low back pain with bilateral s ciatica 11/08/2023 Assessment & Plan (01/29/2025 12:11 PM EDT): Apply heat on affected area and she may take acetaminophen as needed Assessment & Plan (11/09/2023 10:15 AM EDT): I advise heat on affected area Patient will be contacted with XRAY results Encounter for preventive care 11/08/2023 Assessment & Plan (01/29/2025 12:11 PM EDT): See HPI Partial edentulism 06/06/2023 Tipped teeth 05/26/2023 Dental calculus 05/26/2023 Localized gingival recession 05/26/2023 Positive JAIMEE (antinuclear antibody) 03/15/2023 Allergic conjunctivitis of both eyes 12/08/2022 Other fatigue 12/08/2022 Assessment & Plan (03/03/2023 11:43 AM EDT): Labs will be print and mail to patient Patient will be contacted with results Other labs and abdominal MRI results where reviewed with patient Body aches 12/08/2022 Assessment & Plan (12/08/2022 10:49 AM EDT): JAIMEE and RA CCP to be check Liver cyst 12/08/2022 Assessment & Plan (12/08/2022 10:50 AM EDT): MRI book for 12/15/22 GI referral done pending appointment Shortness of breath 10/08/2022 Assessment & Plan (12/08/2022 10:50 AM EDT): PFTs done where abnormal Referral to pulmonology is pending Assessment & Plan (10/13/2022 3:43 PM EDT): Asthma? I order spirometry test today Forgetfulness 10/08/2022 Assessment & Plan (10/13/2022 3:45 PM EDT): Patient reassured today, her minimental test is reassuring, probably forgetfulness triggered by stress, blood work will also be ordered today (TSH, a1c, RPR) Encounter for preventative adult health care exa mination 10/08/2022 Assessment & Plan (10/13/2022 3:45 PM EDT): Please refer to HPI Vaginal discharge 10/08/2022 Pelvic pain 10/08/2022 Assessment & Plan (10/13/2022 3:42 PM EDT): Patient follow with outside PAYABLE REPRESENTATIVE, patient will follow up with them I ordered today a BV panel Aching headache 10/07/2022 Encounters Date Type Department Care Team Description 03/14/2025 11:00 AM EDT Office Visit [facility] [address] [place] [address] Forest Fitch, SHAQS Partial edentulism, unspecified edentulism class (Primary Dx) 03/13/2025 Travel 02/21/2025 10:00 AM EDT Office Visit [facility] [address] [place] [address] Forest Fitch, DDS Partial edentulism, unspecified edentulism class (Primary Dx) 02/20/2025 Travel 01/31/2025 10:00 AM EDT Office Visit [facility] [address] [place] [phone] Jeannette Weaver Dental calculus (Primary Dx); Missing teeth, acquired; Tipped teeth; Localized gingival recession 01/30/2025 Travel 01/29/2025 10:45 AM EDT Office Visit [facility] [address] [place] [phone] Agata Clark MD Chronic bilateral low back pain with bilateral sciatica (Primary Dx); Encounter for screening mammogram for malignant neoplasm of breast; Encounter for preventive care 01/29/2025 Travel 01/28/[address] [address] Agata Clark MD Chart prep 01/21/2025 Patient Outreach [address] [address] Agata Clark MD Pre-visit Planning (SDOH screening negative and tobacco screening negative) from Last 3 Months Immunizations Immunization Administration Dates Next Due Tdap 10/24/2019 Social History Tobacco Use Types Packs/Day Years Used Date Smoking Tobacco: Never Passive Smoke Exposure: Never Smokeless Tobacco: Never Tobacco Cessation:Counseling Given: Not Answered Alcohol Use Standard Drinks/Week Comments Defer 0 (1 standard drink = 0.6 oz pur e alcohol) Depression Answer Date Recorded Patient Health Questionnaire-9 Score 5 11/08/2023 Patient Health Questionnaire-9 Score 5 11/08/2023 Last PHQ-9: Questionnaire Data Not on file 0 11/08/2023 Housing Stability Answer Date Recorded What is your housing situation today? I have maría pineda 01/21/[address] you li ve. Do you have problems with any of the following? None of the above 01/21/2025 Food Insecurity Answer Date Recorded Within the past 12 months, y ou worried that your food would run out before you got money to buy more: Never True 01/21/2025 Within the past 12 months,th e food you bought just didn't last and you didn't have enough money to get more: Never True 12/2024 Transportation Answer Date Recorded In the past 12 months, has l ack of transportation kept you from medical appts, meetings, work or from getting things needed for daily living? No 01/21/2025 Utilities Answer Date Recorded In the past 12 months, has t he electric, gas, oil or water company threatened to shut off services in your home? No 01/21/2025 Depression Answer Date Recorded Patient Health Questionnaire-2 Score 2 11/08/2023 Internet Access Answer Date Recorded Internet Access Q1 Yes 01/21/2025 Internet Access Q2 Not on file 01/21/2025 Comments Unknown Sex and Gender Information Value Date Recorded Sex Assigned at Female 03/15/2022 10:33 AM EDT Legal Sex Female 10:33 AM EDT Gender Identity Female 03/15/2022 10:33 AM EDT Sexual Orientation Choose not to disclose 2021 10:33 AM EDT Last Filed Vital Signs Vital Sign Reading Time Taken Comments Blood Pressure 110/70 03/14/2025 10:29 AM EDT Pulse 61 01/29/2025 10:38 AM EDT Temperature 36.1 C (97 F) 01/29/2025 10:38 AM EDT Respiratory Rate 18 01/29/2025 10:38 AM EDT Oxygen Saturation 98% 01/29/2025 10:38 AM EDT Inhaled Oxygen Concentration - - Weight 65.3 kg (144 lb) 01/29/2025 10:38 AM EDT Height 157.5 cm (5' 2 ) 01/29/2025 10:38 AM EDT Body Mass Index 26.34 01/29/2025 10:38 AM EDT Plan of Treatment Upcoming Encounters Date Type Department Care Team (Late st Contact Info) Description 04/03/2025 10:00 AM EST Office Visit [facility] [address], [place] [phone] Forest Fitch DDS [address], [place] [phone] 08/05/2025 9:30 AM EDT Office Visit [facility] [address] [place] [address] Jeannette Weaver [address] [place] [address] Health Maintenance Due Date Last Done Comments Disability Screening 1982 Alcohol/Substance Use Screening 1994 Family Planning (PISQ) 1997 HPV Vaccines (1 - 3-dose series) 1997 Hepatitis A Vaccines (1 of 2 - Risk 2-dose series) 2001 Hepatitis B Vaccines (1 of 3 - 19+ 3-dose series) 2001 Mammogram 2022 Depression Screening 11/07/2024 11/08/2023, 11/08/19 24 COVID-19 Vaccine (2024- season) 2025 Influenza Vaccine (#1) 2025 Dental Oral Exam 08/01/2025 01/31/2025, 03/2024, 08/27/2020, Additional history exists Dental Prophylaxis 08/01/2025 01/31/2025, 0 05/26/2023, 01/15/2022, Additional history exists SDOH Screening 01/21/2026 01/21/2025 Dental X-Ray: Bitewings 02/01/2026 02/01/20 25, 05/26/2023, 01/15/2022, Additional history exists Tobacco Screening 03/14/2026 03/14/2025 Dental X-Ray: Full Mouth 05/27/2026 024, 12/25/2018, 07/12/2017 Cervical Cancer Screening 12/26/2028 HPV/Cotest 12/26/2028 12/27/2023, 10/27/2018 Pap Smear 12/26/2028 12/27/2023 DTaP/Tdap/Td Vaccines (2 - Td or Tdap) 10/23/2029 10/24/2019 Zoster Vaccines (1 of 2) 2032 RSV Patients and Patients Aged 60 years or older (1 - 1-dose 75+ series) 2057 HIV Screening Completed 11/08/2023, 10/14/2022 Hepatitis C Screening Completed 11/08/2023, 023 HIB Vaccines Aged Out No longer eligi ble based on patient's age to complete this topic IPV Vaccines Aged Out No longer eligi ble based on patient's age to complete this topic Meningococcal B Vaccine Aged Out No l onger eligible based on patient's age to complete this topic Meningococcal Vaccine Aged Out No suzie jamar eligible based on patient's age to complete this topic Pneumococcal Vaccine: Pediatrics (0 to 5 Years) and At-Risk Patients (6 to 49) Years Aged Out No longer eligible based on patient's age to complete this topic RSV under 20 months Aged Out No longe r eligible based on patient's age to complete this topic Rotavirus Vaccines Aged Out No longer eligible based on patient's age to complete this topic Procedures Procedure Name Priority Date/Time Associated Diagnosis Comments BITE REGISTRATION Routine 03/14/2025 11: 00 AM EDT DENTURE IMPRESSION Routine 02/21/2025 10 :00 AM EDT PERIODIC ORAL EVALUATION - ESTABLISHED PATIENT Routine 01/31/2025 10:00 AM EDT ORAL HYGIENE INSTRUCTIONS Routine 01/31/2025 10:00 AM EDT Dental calculus Missing teeth, acquired Tipped teeth Localized gingival recession CASE PRESENTATION, DETAILED AND EXTENSIVE TREATMENT PLANNING Routine 01/31/2025 10:00 AM EDT Dental calculus Missing teeth, acquired Tipped teeth Localized gingival recession PROPHYLAXIS - ADULT Routine 01/31/2025 1 0:00 AM EDT Dental calculus INTRAORAL - PERIAPICAL EACH ADDITIONAL RADIOGRAPHIC IMAGE Routine 01/31/2025 10:00 AM EDT Dental calculus Missing teeth, acquired Tipped teeth Localized gingival recession INTRAORAL - PERIAPICAL FIRST RADIOGRAPHIC IMAGE Routine 01/31/2025 10:00 AM EDT Dental calculus Missing teeth, acquired Tipped teeth Localized gingival recession BITEWINGS - 4 RADIOGRAPHIC IMAGES Routine 01/31/2025 10:00 AM EDT Dental calculus Missing teeth, acquired Tipped teeth Localized gingival recession THINPREP IMAGING PAP AND HPV MRNA E6/E7 Routine 12/27/2023 11:07 AM EDT HEPATITIS C VIRAL RNA, QUANTITATIVE, REAL-TIME PCR Routine 11/08/2023 3:14 PM EDT Encounter for preventive care HIV 1/2 ANTIGEN/ANTIBODY, FOURTH GENERATION W/RFL Routine 11/08/2023 3:14 PM EDT Encounter for preventive care INTRAORAL - COMPLETE SERIES OF RADIOGRAPHIC IMAGES Routine 05/26/2023 1:00 PM EST Tipped teeth Dental calculus Localized gingival recession from Last 3 Months or Most Recently Relevant to Health Maintenance Results * ThinPrep Imaging Pap and HPV mRNA E6/E7 (12/27/2023 11:07 AM EDT) HPV nRNA E6/E7 Not Detected Not Detected [facility] Comment:Methodology: Transcr iption-Mediated AmplificationThis assay detects E6/E7 viral messenger RNA (mRNA) from 14high-risk HPV types (16,18,31,33,35,39,45,51,52,56,58,59,66,68).Cervical sources are required for HPV testing.If a vaginal source from a patient who has had atotal hysterectomy with removal of cervix wassubmitted, please contact the testing laboratoryfor alternative testing options.For additional information, please refer tohttp://education.Bitbond/faq/JRN160n8(This link if provided for information/educational purposes only.)THIS TEST WAS PERFORMED AT:[facility] [place] [phone] MALDONADO MD SOURCE: SEE NOTE [facility] Comment:None given Report Status: TNP [facility] Clinical Information: SEE NOTE [facility] Comment:None given LMP: SEE NOTE [facility] Comment:NONE GIVEN Prev. PAP: SEE NOTE [facility] Comment:NONE GIVEN Prev. BX: SEE NOTE [facility] Comment:NONE GIVEN Statement Of Adequacy: SEE NOTE [facility] Comment:Satisfactory for mile luation.Endocervical/transformation zone component absent. General Categorization: [facility] Interpretation/Result: SEE NOTE [facility] Comment:Cytology Results: Ne gative for intraepitheliallesion or malignancy. Cytology Comment SEE NOTE [facility] Comment:This Pap test has be en evaluated with computerassisted technology. Child Protective Services Social Worker: SEE NOTE [facility] Comment:WAC, CT(ASCP)CT scre ening location: [place] [address] Review Child Protective Services Social Worker: [facility] Pathologist [facility] PAP Infection [facility] See Note SEE NOTE [facility] Comment:EXPLANATORY NOTE:The Pap is a screening test for cervical cancer. It isnot a diagnostic test and is subject to false negativeand false positive results. It is most reliable when asatisfactory sample, regularly obtained, is submittedwith relevant clinical findings and history, and whenthe Pap result is evaluated along with historic andcurrent clinical information. 12/27/2023 11:0 7 AM EDT 12/27/2023 1:18 PM EDT Narrative [facility] - 01/02/2024 11:53 AM EDT SEE SCANNED RESULTS IN EMR Agata Banegas MD LAB PATHOLOGY ORDERAB LES Final Result [facility] [address] [place] [address] [phone] * Hepatitis C Viral RNA, Quantitative, Real-Time PCR (11/08/2023 3:14 PM EDT) Hepatitis C Viral Load <15 NOT DETECTED NOT DETECTED IU/mL [facility] HCV Log PCR <1.18 NOT DETECTED NOT DETECTED Log IU/mL [facility] Comment:For additional infor farideh, please refer tohttp://education.Bitbond/faq/YBI92j1(This link is being provided for informational/educational purposes only.)THIS TEST WAS PERFORMED AT:[facility] [place] [phone] MALDONADO MD Blood 11/08/2023 3:14 PM EDT 11/08/2023 4:15 PM EDT us Agata Banegas MD LAB BLOOD ORDERABLES Final Result Performing Organization Address [facility]/ZIP Co de Phone Number [facility] [address] [place] [phone] * HIV-1/2 Antigen and Antibodies, Fourth Generation, with Reflexes (11/08/2023 3:14 PM EDT) [facility] HIV AB/AG Nonreactive Nonreactive [facility] Comment:HIV-1 p24 Ag and/or HIV-1/HIV-2 Ab not detected.A test result that is nonreactive does not exclude thepossibility of exposure to or infection with HIV-1 and/orHIV-2. Nonreactive results in this assay for individualswith prior exposure to HIV-1 and/or HIV-2 may be due toantigen and antibody levels that are below the limit ofdetection of this assay.The [employer] HIV Ag/Ab Combo assay result andsupplemental assay results should be interpreted inconjunction with the patient's clinical presentation,history and other laboratory results. If the results areinconsistent with clinical evidence, additional testing issuggested to confirm the result. Blood Venous blood specimen / Unknown 11/08/2023 3:14 PM EDT 11/08/2023 4:15 PM EDT us Agata Banegas MD LAB BLOOD ORDERABLES Final Result Performing Organization Address [facility]/ZIP Co de Phone Number [facility] [address] [place] [address] [phone] from Last 3 Months or Most Recently Relevant to Health Maintenance Insurance HSN PARTIAL DENTAL - HSN PARTIAL (MEDICAID) Care Teams Hazardous Substances Scientist Relationship Specialty Start Date End Date Agata Clark MD [address] [place] [address] PCP - General Family Medicine 09/15/18
--- OUTSIDE RECORDS SUMMARY | 2025-03-30 10:28 | XMS_ITS | Clinical Summary ---
Author Organization [facility] Address [address] [place] [address] Care Team Providers Care Food And Nutrition Teacher Name Role Phone Agata Clark MD Primary Care Provider Allergies No known active allergies Medications No known medications Active Problems Problem Noted Date Diagnosed Date Positive JAIMEE (antinuclear antibody) 02/21/2024 Social History Tobacco Use Types Packs/Day Years Used Date Smoking Tobacco: Never Passive Smoke Exposure: Never Smokeless Tobacco: Never Tobacco Cessation:Counseling Given: Not Answered Alcohol Use Standard Drinks/Week Comments Not Currently 0 (1 standard drink = 0.6 oz pur e alcohol) Comments Unknown Sex and Gender Information Value Date Recorded Sex Assigned at Not on file Legal Sex Female 3:50 PM EDT Gender Identity Not on file Sexual Orientation Not on file Last Filed Vital Signs Vital Sign Reading Time Taken Comments Blood Pressure 130/71 02/21/2024 12:58 PM EDT Pulse 69 02/21/2024 12:58 PM EDT Temperature 36.8 C (98.3 F) 02/21/2024 12:58 PM EDT Respiratory Rate - - Oxygen Saturation - - Inhaled Oxygen Concentration - - Weight 65.3 kg (144 lb) 02/21/2024 12:58 PM EDT Height - - Body Mass Index - - Plan of Treatment Health Maintenance Due Date Last Done Comments Cervical Cancer Screening 1982 HPV and Pap Smear 1982 Hepatitis C Screening 1982 Pap Smear 1982 Varicella Vaccines (1 of 2 - 13+ 2-dose series) 1995 Hepatitis B Vaccines (1 of 3 - 19+ 3-dose series) 2001 Mammogram 2022 Alcohol/Substance Use Screening 05/16/2024 Depression Screening and Follow-Up 05/16/2024 Social [employer] [facility] [employer] Annual Screening 05/16/2024 COVID-19 Vaccine (1 - 2024-2 6 season) 2025 Influenza Vaccine (#1) 2025 DTaP,Tdap,and Td Vaccines (2 - Td or Tdap) 10/23/2029 10/24/2019 HIV Screening Completed 11/08/2023, 11/08/2023, 10/14/2022 Pneumococcal Vaccine: Pediatric (0-5 Years) and At-Risk Patients (6-50 Years) Aged Out No longer eligible based on patient's age to complete this topic Insurance [facility] HSNO/FREE CARE Care Teams Food And Nutrition Teacher Relationship Specialty Start Date End Date Agata Clark MD [address] [place] [address] PCP - General Internal Medicine 11/11/23
== END 2025-03-30 10:17 | disposition home or self-care (01) ==
LOC: HO.MAMMO 10:16
PROVIDERS: PCP Internal Medicine; Visit Provider Internal Medicine
DX: Z12.31 Encounter for screening mammogram for malignant neoplasm of breast (principal)
CPT/HCPCS: 77063; 77067

== ENCOUNTER → 2025-03-30 10:30 | Outpatient (BNV) | payer SELFPAY | PROVIDERS: PCP Internal Medicine; Visit Provider Radiology Body Imaging | DX: Z12.31 Encounter for screening mammogram for malignant neoplasm of breast (principal) | CPT/HCPCS: 77063; 77067 ==